=== PATIENT | female | born 1985 | race Hispanic/Latino ===

== ENCOUNTER 2023-03-25 17:05 | Emergency (ER) | payer OTHER, BC ==
[~2023-03-25] VITALS: Ht 157.5 cm; Wt 81.6 kg
[2023-03-25 17:18] VITALS: BP 133/86; PULSE 72; RESP 16; O2SAT 97
== END 2023-03-25 21:48 | disposition left against medical advice (07) ==
LOC: EDH 17:05
DX: Z04.1 Encounter for examination and observation following transport accident (principal); Z53.21 Procedure and treatment not carried out due to patient leaving prior to being seen by health care provider